=== PATIENT | male | born 1980 | race Asian ===

== ENCOUNTER 2018-08-03 16:14 | Emergency (ER) | payer BC, OTHER ==
[~2018-08-03] VITALS: Ht 167.6 cm; Wt 75.6 kg
[2018-08-03 16:28] VITALS: BP 128/80
== END 2018-08-03 18:12 | disposition home or self-care (01) ==
LOC: ED 18:06
DX: S16.1XXA Strain of muscle, fascia and tendon at neck level, initial encounter (principal); S39.012A Strain of muscle, fascia and tendon of lower back, initial encounter; S09.90XA Unspecified injury of head, initial encounter; V43.51XA Car driver injured in collision with sport utility vehicle in traffic accident, initial encounter; Y93.89 Activity, other specified; Y92.89 Other specified places as the place of occurrence of the external cause; Y99.8 Other external cause status
CPT/HCPCS: 72050; 72110; 99284